=== PATIENT | female | born 1975 | race Caucasian/White ===

== ENCOUNTER 2019-12-22 11:02 | Emergency (ER) | payer BC ==
--- OUTSIDE RECORDS SUMMARY | 2019-12-22 11:15 | XMS REPORT | Summary of Care ---
:1975 Author Organization [facility] Address [address] [place] [address] Care Team Providers Name Role Phone Lesa Reyes MD Primary Care Provider Reason for Referral Diagnostic Radiology (Routine) Status Reason Specialty Diagnoses / Referred By Referred To Procedures Contact Contact Authorized Radiology Diagnoses At high risk for breast cancer Codie Norris, Mri 550har Procedures MR Breast Bilateral with and without Contrast [address] [place] [address] [place] [phone] Phone: Email: [email or web address] Reason for Visit Diagnostic Radiology (Routine) Status Reason Specialty Diagnoses / Referred By Referred To Procedures Contact Contact Authorized Radiology Diagnoses At high risk for breast cancer Codie Norris, Mri 550har Procedures MR Breast Bilateral with and without Contrast [address] [place] [address] [place] [phone] Phone: Email: [email or web address] Encounter Details Date Type Department Care Team Description 11/21/2019 Hospital Encounter MRI 550HAR At high risk for breast [address] [facility] [place] [phone] Allergies No Known Allergiesdocumented as of this encounter (statuses as of 11/22/2019) Medications Medication Sig Dispensed Refills Start Date End Date Status Vitamin D3 1.25 MG Take 50,000 Units by 0 Active (79600 UT) Oral mouth every 30 Capsule (thirty) days (CHOLECALCIFEROL) Ginkgo Biloba 40 MG Take by mouth 0 Active Oral Indications: TabletIndications: intermittently intermittently TURMERIC Take by mouth 0 Active POIndications: Indications: intermittently intermittently ALPRAZolam 0.25 MG Take 0.25 mg (1 tab) 2 tablet 0 10/23/2019 Active Oral Tablet (XANAX) orally 1 hour prior 0 to MRI, repeat X1 immediately prior to MRI documented as of this encounter (statuses as of 11/22/2019) Active Problems Problem Noted Date Family history of breast cancer 10/15/2019 Dense breasts 10/15/2019 Lump of left breast 10/15/2019 At high risk for breast cancer 10/15/2019 documented as of this encounter (statuses as of 11/22/2019) Social History Tobacco Use Types Packs/Day Years Used Date Former Smoker 0 Quit: 10/15/2012 Smokeless Tobacco: Never Used Alcohol Use Drinks/Week oz/Week Comments Yes socially Sex Assigned at Date Recorded Not on file Job Start Date Occupation Industry Not on file Not on file Not on file Travel History Travel Start Travel End No recent travel history available. documented as of this encounter Last Filed Vital Signs Not on filedocumented in this encounter Plan of Treatment Date Type Specialty Care Team Description 03/12/2020 [facility] Surgery Guera Sanon MD PhD [address] [place] [address] [phone] 05/13/2020 Appointment Radiology Codie Norris MD [address] [place] [address] [place] [address] [phone] 05/13/2020 Office Visit Breast Surgery Codie Norris MD [address] [place] [address] [place] [address] [phone] Name Type Priority Associated Diagnoses Order Schedule MR Breast Bilateral Imaging Routine At high risk for breast As Needed for 1 with and without cancer Occurrences starting Contrast 11/21/2019 until 11/21/2019 Health Maintenance Due Date Last Done Comments MMR Vaccines (1 of 1 - Standard 1974 series) Varicella Vaccines (1 of 2 - 1974 2-dose childhood series) DTaP,Tdap,and Td Vaccines (1 - 1980 Tdap) HIV Screening 1986 Cervical Cancer Screening 5 years 1994 Influenza Vaccine 08/20/2019 Pneumococcal Vaccine: 65+ Years (1 2038 of 2 - PCV13) HIB Vaccines Aged Out No longer eligible based on patient's age to complete this topic Hepatitis A Vaccines Aged Out No longer eligible based on patient's age to complete this topic Hepatitis B Vaccines Aged Out No longer eligible based on patient's age to complete this topic IPV Vaccines Aged Out No longer eligible based on patient's age to complete this topic Pneumococcal Vaccine: Pediatrics Aged Out No longer eligible based on (0 to 5 Years) and At-Risk patient's age to complete this Patients (6 to 64 Years) topic documented as of this encounter Results Not on filedocumented in this encounter Visit Diagnoses Diagnosis At high risk for breast cancer documented in this encounter
--- OUTSIDE RECORDS SUMMARY | 2019-12-22 11:15 | XMS REPORT | Summary of Care ---
:1975 Author Organization [facility] Address [address] [place] [phone] Care Team Providers Name Role Phone Lesa Reyes MD Primary Care Provider Reason for Referral Diagnostic Radiology (Routine) Status Reason Specialty Diagnoses / Referred By Referred To Procedures Contact Contact Authorized Radiology Diagnoses Lump of left breast Codie Norris, Procedures Mammo Digital Diagnostic Left [address] [place] [address] [place] [address] Email: [email or web address] Reason for Visit Diagnostic Radiology (Routine) Status Reason Specialty Diagnoses / Referred By Referred To Procedures Contact Contact Authorized Radiology Diagnoses Lump of left breast Codie Norris, Procedures Mammo Digital Diagnostic Left [address] [place] [address] [place] [address] Email: [email or web address] Encounter Details Date Type Department Care Team Description 11/21/2019 Hospital Encounter Radiology [facility] Lump of left breast [address] [address] [place] [phone] Allergies No Known Allergiesdocumented as of this encounter (statuses as of 11/22/2019) Medications Medication Sig Dispensed Refills Start Date End Date Status Vitamin D3 1.25 MG Take 50,000 Units by 0 Active (02175 UT) Oral mouth every 30 Capsule (thirty) [...] Date Type Specialty Care Team Description 03/12/2020 [facility] Surgery Guera Sanon MD PhD [address] [place] [address] [phone] 05/13/2020 Appointment Radiology Codie Norris MD [address] [place] [address] [place] [address] [phone] 05/13/2020 Office Visit Breast Surgery Codie Norris MD [address] [place] [address] [place] [address] [phone] Health Maintenance Due Date Last Done Comments [...] Years) topic documented as of this encounter Procedures Procedure Name Priority Date/Time Associated Comments Diagnosis MAMMO DIGITAL Routine 11/21/2019 2:28 PM Lump of left breast Results for this DIAGNOSTIC LEFT EST procedure are in G0206 the results section. documented in this encounter Results Mammo Digital Diagnostic Left (11/21/2019 2:28 PM EST) Specimen Impressions Performed At IMPRESSION: [facility] 1. Probably benign mammographic appearance of the left breast. 2. Follow up diagnostic left mammogram in 6 months should be obtained, to be coordinated with a screening right breast mammogram. BI-RADS 3 - PROBABLY BENIGN - SHORT INTERVAL FOLLOWUP SUGGESTED. Narrative Performed At UNILATERAL LEFT DIGITAL MAMMOGRAM WITH COMPUTER-AIDED DETECTION [facility] HISTORY: Diagnostic mammogram; short interval follow-up of questionable palpable abnormality with normal ultrasound. The patient reports her mother diagnosed with breast cancer at age 52. Patient denies prior breast procedures. [facility] RISK ASSESSMENT MODEL: 5 year calculated risk: 1.8% Average patient 5 year risk: 1.0% Lifetime risk: 19.3% Average patient lifetime risk: 11.8% COMPARISON: Mammogram of 05/07/2019 and dating back to 2017 LAST REPORTED CLINICAL BREAST EXAM: September 2019 TECHNIQUE: Left craniocaudal and mediolateral oblique digital mammograms were obtained with tomosynthesis. Computer-aided detection was utilized. FINDINGS:The breast is heterogeneously dense, which may obscure small masses ( category C). A small nodule with associated microcalcifications is seen in the upper outer quadrant, not significantly denney ed from the prior study. This has a benign mammographic appearance. No abnormal mass, calcification or architectural distortion is seen. No significant change from prior studies is noted. Performing Organization Address City/State/Zipcode Phone Number [facility] [address] [place] [address] documented in this encounter Visit Diagnoses Diagnosis Lump of left breast Lump or mass in breast documented in this encounter
[2019-12-22 12:06] VITALS: BP 114/64
== END 2019-12-22 12:17 | disposition left against medical advice (07) ==
LOC: UCCORT 11:02
DX: Z53.21 Procedure and treatment not carried out due to patient leaving prior to being seen by health care provider (principal)

== ENCOUNTER 2019-12-22 12:23 | Emergency (ER) | payer BC ==
[2019-12-22 15:28] VITALS: BP 119/70
--- NOTE | 2019-12-22 15:37 | UC ---
Abdominal Pain Female HPI - HPI Summary HPI Summary: Pt presents with c/o LLQ pain that began two days ago. Pt has had 1 episode of diarrhea, denies fever, chills. Pt has known hx of diverticulitis, has never had colonoscopy or CT of ab/pel was diagnosed with PE. 4 years ago. - History of Current Complaint Chief Complaint: UCGI Stated Complaint: STOMACH PAIN Time Seen by Provider: 12/22/19 15:24 Hx Obtained From: Patient Hx Last Menstrual Period: 12/11/19 ?: No Onset/Duration: Sudden Onset, Lasting Days, Still Present Timing: Constant Severity Initially: Mild Severity Currently: Moderate Pain Intensity: 0 Location: Discrete At: LLQ Radiates to: LLQ Character: Dull, Sharp Aggravating Factor(s): Movement, Other: - palpation Alleviating Factor(s): Nothing Associated Signs and Symptoms: Positive: Diarrhea, Other: - LLQ pain - Risk Factors Ectopic Risk Factor: Negative Ovarian Torsion Risk Factor: Negative Allergies/Adverse Reactions: Allergies Allergy/AdvReac Type Severity Reaction Status Date / Time No Known Allergies Allergy Verified 12/22/19 15:25 PMH/Surg Hx/FS Hx/Imm Hx Previously Healthy: Yes GI/ History: Diverticulitis - Surgical History Surgical History: Yes Surgery Procedure, Year, and Place: wisdom teeth extracted - Family History Known Family History: Positive: Cardiac Disease - Social History Occupation: Employed Full-time Lives: With Family Alcohol Use: Weekly Alcohol Amount: weekends Substance Use Type: None Smoking Status (MU): Former Smoker Have You Smoked in the Last Year: No When Did the Patient Quit Smoking/Using Tobacco: APPROX 3.5 YRS - Immunization History Vaccination Up to Date: Yes Review of Systems All Other Systems Reviewed And Are Negative: Yes Constitutional: Positive: Negative Skin: Positive: Negative Eyes: Positive: Negative ENT: Positive: Negative Respiratory: Positive: Negative Cardiovascular: Positive: Negative Gastrointestinal: Positive: Abdominal Pain - LLQ, Diarrhea - X 1 Genitourinary: Positive: Negative Motor: Positive: Negative Neurovascular: Positive: Negative Musculoskeletal: Positive: Negative Neurological: Positive: Negative Psychological: Positive: Negative Is Patient Immunocompromised?: No Physical Exam Triage Information Reviewed: Yes Appearance: Well-Appearing Vital Signs: Initial Vital Signs Temp 98.5 F 12/22/19 15:25 Pulse 74 12/22/19 15:25 Resp 16 12/22/19 15:25 BP 119/70 12/22/19 15:25 Pulse Ox 100 12/22/19 15:25 Vital Signs Reviewed: Yes Eye Exam: Normal ENT Exam: Normal Dental Exam: Normal Neck exam: Normal Respiratory Exam: Normal Cardiovascular Exam: Normal Abdomen Description: Positive: Other: - LLQ pain Bowel Sounds: Positive: Present Musculoskeletal Exam: Normal Neurological Exam: Normal Psychological Exam: Normal Skin Exam: Normal Abd Pain Female Course/Dx - Course Course Of Treatment: I discussed my concern for diverticulitis with pt and the need to f/u immediately with PCP. I additionally discussed that preferred imaging for dx of diverticulitis garry CT with contrast and that we do not have that available in a timely manner at . Pt verbalized understanding and agreed to plan of care. I further discussed that if she had worsening of symptoms that she needed to go directly to the closest ER as soon as possible. I discussed the risk of taking antibiotics and the need to f/u immediately with PCP. Pt verbalized understanding and agreed to plan of care. - Differential Dx/Diagnosis Differential Diagnosis: Diverticulitis, Irritable Bowel Syndrome, Ovarian Cyst Provider Diagnosis: Left lower quadrant abdominal pain Discharge ED - Sign-Out/Discharge Documenting (check all that apply): Patient Departure All imaging exams completed and their final reports reviewed: No Studies - Discharge Plan Condition: Stable Disposition: HOME Prescriptions: Ciprofloxacin TAB* [Cipro 500 MG TAB*] 500 mg PO Q12H #20 tab metroNIDAZOLE [Metronidazole] 500 mg PO Q8H #30 tablet Patient Education Materials: Acute Abdominal Pain (ED), Diverticulitis Diet (ED ) Referrals: Lesa Reyes MD [Primary Care Provider] - As Soon As Possible - Billing Disposition and Condition Condition: STABLE Disposition: Home
== END 2019-12-22 15:49 | disposition home or self-care (01) ==
LOC: UCCORT 12:23
DX: R10.32 Left lower quadrant pain (principal); R19.7 Diarrhea, unspecified; Z87.19 Personal history of other diseases of the digestive system; Z87.891 Personal history of nicotine dependence
CPT/HCPCS: 99212; G0463